=== PATIENT | male | born 1970 | race Caucasian/White ===

== ENCOUNTER 2022-11-14 19:02 | Inpatient (IN) | payer OTHER ==
[2022-11-14 20:17] VITALS: BMI 25.8
[2022-11-14] MEDS ORDERED: BISMUTH SUBSALICYLATE 524 MG/30 ML PO PRN (21:17)
[2022-11-14] MEDS ORDERED: LOPERAMIDE HCL 2 MG CAPSULE PO PRN (21:17)
[2022-11-14] MEDS ORDERED: NALOXONE HCL (KLOXXADO) 8 MG SPRAY NS PRN (21:17)
[2022-11-14] MEDS ORDERED: DICYCLOMINE HCL 10 MG CAPSULE PO PRN (21:17)
[2022-11-14] MEDS ORDERED: ACETAMINOPHEN 325 MG TABLET (FP) PO PRN ×2 (21:17)
[2022-11-14] MEDS ORDERED: POLYETHYLENE GLYCOL (HEALTHYLAX) 3350 17 GM PACKET PO PRN (21:17)
[2022-11-14] MEDS ORDERED: IBUPROFEN 400 MG TABLET (FP) PO PRN (21:17)
[2022-11-14] MEDS ORDERED: chlordiazePOXIDE HCL 25 MG CAPSULE PO PRN (21:17)
[2022-11-14] MEDS ORDERED: MAGNESIUM HYDROX 2400MG/30ML ORAL SUSPENSION 30 ML CUP PO PRN (21:17)
[2022-11-14] MEDS ORDERED: IBUPROFEN 600 MG TABLET (FP) PO PRN (21:17)
[2022-11-14] MEDS ORDERED: MAG HYDROX/AL HYDROX/SIMETH 30 ML UNIT-DOSE CUP PO PRN (21:17)
[2022-11-14] MEDS ORDERED: BENZOCAINE/MENTHOL (CHLORASEPTIC ) LOZENGE MM PRN (21:17)
[2022-11-14] MEDS ORDERED: ONDANSETRON *ODT* 4 MG TABLET SL PRN (21:17)
[2022-11-14] MEDS: MELATONIN 5 MG TABLETS PO SCH (22:56)
[2022-11-14] MEDS: THIAMINE HCL 100 MG TABLET (FP) PO SCH (22:57)
[2022-11-14] MEDS: chlordiazePOXIDE HCL 25 MG CAPSULE PO SCH (23:01)
[2022-11-15] MEDS: chlordiazePOXIDE HCL 25 MG CAPSULE PO SCH ×3 (05:37→17:18)
[2022-11-15] MEDS: PRENATAL VITAMINS W/ FOLIC ACID TABLET (FP) PO SCH (10:17)
[2022-11-15] MEDS: amLODIPine BESYLATE 10 MG TABLET (FP) PO SCH (10:17)
[2022-11-15] MEDS ORDERED: cloNIDine HCL 0.1 MG TABLET PO PRN (13:26)
[2022-11-15] MEDS: THIAMINE HCL 100 MG TABLET (FP) PO SCH (22:34)
[2022-11-15] MEDS: chlordiazePOXIDE HCL 10 MG CAPSULE PO SCH (22:34)
[2022-11-15] MEDS: MELATONIN 5 MG TABLETS PO SCH (22:34)
[2022-11-16] MEDS: chlordiazePOXIDE HCL 10 MG CAPSULE PO SCH ×6 (05:18→22:16)
[2022-11-16] MEDS: amLODIPine BESYLATE 10 MG TABLET (FP) PO SCH (10:14)
[2022-11-16] MEDS: PRENATAL VITAMINS W/ FOLIC ACID TABLET (FP) PO SCH (10:14)
[2022-11-16 15:10] LABS: BLOOD UREA NITROGEN 10.7 mg/dL (7-18); CALCIUM 9.2 mg/dL (8.5-10.1)
[2022-11-16 15:12] LABS: ALBUMIN 3.5 g/dl (3.4-5.0)
[2022-11-16 15:13] LABS: HEMATOCRIT 34.3 % (35.4-49); HEMOGLOBIN 11.3 GM/dL (11.7-16.9); MCH 29.4 pg (25.7-33.7); MCHC 32.9 g/dl (32.0-35.9); MEAN CELL VOLUME 89.4 fl (80-96); MEAN PLT VOLUME 9.3 fl (7.5-11.1); PLATELET COUNT 240 10^3/uL (134-434); RBC 3.83 M/mm3 (4.00-5.60); RDW 24.8 % (11.9-15.9)
[2022-11-16 15:15] LABS: BILIRUBIN,TOTAL 0.8 mg/dL (0.2-1); TOT PROT 6.5 g/dl (6.4-8.2)
[2022-11-16 15:17] LABS: CREATININE 0.8 mg/dL (0.55-1.3)
[2022-11-16 15:24] LABS: WHITE BLOOD COUNT 8.1 K/mm3 (4.0-10.0)
[2022-11-16] MEDS: MELATONIN 5 MG TABLETS PO SCH (22:14)
[2022-11-16] MEDS: THIAMINE HCL 100 MG TABLET (FP) PO SCH (22:14)
[2022-11-17] MEDS ORDERED: chlordiazePOXIDE HCL 10 MG CAPSULE PO PRN
[2022-11-17] MEDS: PRENATAL VITAMINS W/ FOLIC ACID TABLET (FP) PO SCH (10:13)
[2022-11-17] MEDS: amLODIPine BESYLATE 10 MG TABLET (FP) PO SCH (10:13)
[2022-11-17] MEDS: chlordiazePOXIDE HCL 10 MG CAPSULE PO SCH (10:14)
[2022-11-17 10:42] LABS: EPI CELLS 9 /uL (0-25.1); HYALINE CASTS 7 /uL (0-3.1); PH,URINE 7.5 (5.0-8.0); URINE APPEARANCE TURBID; URINE BACTERIA 44 /uL (0-1359); URINE BILIRUBIN NEGATIVE (NEGATIVE); URINE COLOR YELLOW; URINE GLUCOSE (UA) NEGATIVE (NEGATIVE); URINE KETONE NEGATIVE (NEGATIVE); URINE LEUK ESTERASE TRACE (NEGATIVE); URINE NITRITE NEGATIVE (NEGATIVE); URINE PROTEIN NEGATIVE (NEGATIVE); URINE RBC 10 /uL (0-23.9); URINE WBC 32 /uL (0-25.8)
[2022-11-17] MEDS: THIAMINE HCL 100 MG TABLET (FP) PO SCH (22:03)
[2022-11-17] MEDS: MELATONIN 5 MG TABLETS PO SCH (22:04)
[2022-11-18] MEDS ORDERED: chlordiazePOXIDE HCL 10 MG CAPSULE PO ONE (05:00)
[2022-11-18] MEDS: PRENATAL VITAMINS W/ FOLIC ACID TABLET (FP) PO SCH (10:12)
[2022-11-18] MEDS: amLODIPine BESYLATE 10 MG TABLET (FP) PO SCH (10:12)
[2022-11-18] MEDS: MELATONIN 5 MG TABLETS PO SCH (22:22)
[2022-11-18] MEDS: THIAMINE HCL 100 MG TABLET (FP) PO SCH (22:22)
[2022-11-19 09:52] VITALS: BP 140/83; PULSE 96; RESP 16; TEMP 98.4
[2022-11-19] MEDS: amLODIPine BESYLATE 10 MG TABLET (FP) PO SCH (10:13)
[2022-11-19] MEDS: PRENATAL VITAMINS W/ FOLIC ACID TABLET (FP) PO SCH (10:13)
== END 2022-11-19 12:30 | disposition home or self-care (01) | DRG 775 ==
LOC: YASAS 19:02 → Y6N 22:26
PROVIDERS: ADMIT Allergy & Immunology; ATTEND Family Medicine
PROC: HZ2ZZZZ Detoxification Services for Substance Abuse Treatment (ICD-10-PCS; principal; 2022-11-14)
DX: F10.230 Alcohol dependence with withdrawal, uncomplicated (principal); F19.24 Other psychoactive substance dependence with psychoactive substance-induced mood disorder
CPT/HCPCS: 36415; 80053; 81003; 85027; 86780; C9803-CS; U0003; U0005

== ENCOUNTER 2024-02-11 18:38 | Inpatient (IN) | payer OTHER ==
[~2024-02-11 18:38] MED LIST: ACETAMINOPHEN 325 MG TABLET (FP) PO PRN; BENZOCAINE/MENTHOL (CHLORASEPTIC ) LOZENGE MM PRN; BENZONATATE 200 MG CAPSULE PO PRN; IBUPROFEN 400 MG TABLET (FP) PO PRN; IBUPROFEN 600 MG TABLET (FP) PO PRN; LOPERAMIDE HCL 2 MG CAPSULE PO PRN; MAG HYDROX/AL HYDROX/SIMETH 30 ML UNIT-DOSE CUP PO PRN; MAGNESIUM HYDROX 2400MG/30ML ORAL SUSPENSION 30 ML CUP PO PRN; METHOCARBAMOL 500 MG TABLET PO PRN; NALOXONE (NYS OPIOID OVERDOSE PROGRAM) 4 MG/0.1 ML SPRAY NS PRN; NALOXONE HCL 0.4 MG/ML VIAL IVPUSH PRN; POLYETHYLENE GLYCOL (HEALTHYLAX) 3350 17 GM PACKET PO PRN; guaiFENesin 600 MG TABLET.ER (FP) PO PRN; hydrOXYzine PAMOATE 25 MG CAPSULE (FP) PO PRN
[2024-02-11 20:00] VITALS: BMI 24.9
[2024-02-11] MEDS ORDERED: POLYETHYLENE GLYCOL (HEALTHYLAX) 3350 17 GM PACKET PO PRN (21:18)
[2024-02-11] MEDS ORDERED: BENZOCAINE/MENTHOL (CHLORASEPTIC ) LOZENGE MM PRN (21:18)
[2024-02-11] MEDS ORDERED: BISMUTH SUBSALICYLATE 524 MG/30 ML PO PRN (21:18)
[2024-02-11] MEDS ORDERED: NALOXONE HCL 0.4 MG/ML VIAL IM PRN (21:18)
[2024-02-11] MEDS ORDERED: ONDANSETRON *ODT* 4 MG TABLET SL PRN (21:18)
[2024-02-11] MEDS ORDERED: MAG HYDROX/AL HYDROX/SIMETH 30 ML UNIT-DOSE CUP PO PRN (21:18)
[2024-02-11] MEDS ORDERED: NALOXONE HCL (KLOXXADO) 8 MG SPRAY NS PRN (21:18)
[2024-02-11] MEDS ORDERED: guaiFENesin 600 MG TABLET.ER (FP) PO PRN (21:18)
[2024-02-11] MEDS ORDERED: LOPERAMIDE HCL 2 MG CAPSULE PO PRN (21:18)
[2024-02-11] MEDS ORDERED: IBUPROFEN 600 MG TABLET (FP) PO PRN (21:18)
[2024-02-11] MEDS ORDERED: ACETAMINOPHEN 325 MG TABLET (FP) PO PRN (21:18)
[2024-02-11] MEDS ORDERED: IBUPROFEN 400 MG TABLET (FP) PO PRN (21:18)
[2024-02-11] MEDS ORDERED: METHOCARBAMOL 500 MG TABLET PO PRN (21:18)
[2024-02-11] MEDS ORDERED: hydrOXYzine PAMOATE 25 MG CAPSULE (FP) PO PRN (21:18)
[2024-02-11] MEDS ORDERED: MAGNESIUM HYDROX 2400MG/30ML ORAL SUSPENSION 30 ML CUP PO PRN (21:18)
[2024-02-11] MEDS ORDERED: BENZONATATE 200 MG CAPSULE PO PRN (21:18)
[2024-02-11] MEDS ORDERED: THIAMINE 100 MG TABLET PO SCH (22:00)
[2024-02-11] MEDS: MELATONIN 5 MG TABLETS PO SCH (22:00)
[2024-02-11] MEDS ORDERED: MELATONIN 5 MG TABLETS PO SCH (22:00)
[2024-02-11] MEDS: THIAMINE 100 MG TABLET PO SCH (22:00)
[2024-02-11] MEDS: NICOTINE 14 MG/24 HOURS TOPICAL PATCH TD SCH (23:11)
[2024-02-11] MEDS: PRENATAL VITAMINS W/ FOLIC ACID TABLET (FP) PO SCH (23:11)
[2024-02-12] MEDS: PRENATAL VITAMINS W/ FOLIC ACID TABLET (FP) PO SCH (09:25)
[2024-02-12] MEDS ORDERED: amLODIPine BESYLATE 10 MG TABLET (FP) PO SCH (10:00)
[2024-02-12] MEDS: chlordiazePOXIDE HCL 25 MG CAPSULE PO SCH (11:20)
[2024-02-12 12:45] LABS: HEMATOCRIT 38.2 % (35.4-49); HEMOGLOBIN 13.8 GM/dL (11.7-16.9); MCH 34.5 pg (25.7-33.7); MEAN CELL VOLUME 95.8 fl (80-96); MEAN PLT VOLUME 8.9 fl (7.5-11.1); RBC 3.99 M/mm3 (4.00-5.60); RDW 16.5 % (11.9-15.9); WHITE BLOOD COUNT 6.5 K/mm3 (4.0-10.0)
[2024-02-12 12:47] LABS: PLATELET COUNT 127 10^3/uL (134-434)
[2024-02-12 12:58] LABS: POTASSIUM 3.8 mmol/L (3.5-5.1)
[2024-02-12 13:00] LABS: CALCIUM 9.1 mg/dL (8.5-10.1)
[2024-02-12 13:01] LABS: BLOOD UREA NITROGEN 5.7 mg/dL (7-18)
[2024-02-12 13:04] LABS: CREATININE 0.7 mg/dL (0.55-1.3)
[2024-02-12 13:06] LABS: TOT PROT 7.5 g/dl (6.4-8.2)
[2024-02-12 13:07] LABS: BILIRUBIN,TOTAL 3.2 mg/dL (0.2-1)
[2024-02-12] MEDS: DICYCLOMINE HCL 10 MG CAPSULE PO PRN (13:38)
[2024-02-12] MEDS: chlordiazePOXIDE HCL 25 MG CAPSULE PO PRN (13:39)
[2024-02-14] MEDS: chlordiazePOXIDE HCL 25 MG CAPSULE PO SCH (06:23)
[2024-02-15] MEDS ORDERED: chlordiazePOXIDE HCL 10 MG CAPSULE PO PRN
[2024-02-15] MEDS: chlordiazePOXIDE HCL 10 MG CAPSULE PO SCH (05:47)
[2024-02-16] MEDS: chlordiazePOXIDE HCL 10 MG CAPSULE PO SCH (05:59)
[2024-02-16 09:28] VITALS: BP 140/89; PULSE 85; RESP 20; TEMP 98.2
[2024-02-17] MEDS ORDERED: chlordiazePOXIDE HCL 10 MG CAPSULE PO ONE (05:00)
== END 2024-02-16 10:15 | disposition home or self-care (01) | DRG 775 ==
LOC: YASAS 18:38 → Y6N 21:49 → Y3N 21:55
PROVIDERS: ADMIT Allergy & Immunology; ATTEND Surgery
PROC: HZ2ZZZZ Detoxification Services for Substance Abuse Treatment (ICD-10-PCS; principal; 2024-02-11)
DX: F10.230 Alcohol dependence with withdrawal, uncomplicated (principal); F19.24 Other psychoactive substance dependence with psychoactive substance-induced mood disorder; F41.9 Anxiety disorder, unspecified; I10 Essential (primary) hypertension; R74.01 Elevation of levels of liver transaminase levels
CPT/HCPCS: 36415; 80053; 80305; 80307; 85027; 86780; 93005; 93010